=== PATIENT | female | born 1995 | race Caucasian/White ===

== ENCOUNTER 2016-07-14 13:53 | Emergency (ER) | payer MEDICAID, OTHER ==
[2016-07-14 14:18] VITALS: BMI 24.9
[2016-07-14 14:19] VITALS: BP 112/72; PULSE 120; RESP 16; TEMP 98.7; O2SAT 100
[2016-07-14] MEDS ORDERED: Lidocaine/Epi 1% 1:100000 20 ML IJ ONE (15:01)
--- NOTE | 2016-07-14 16:23 | ED PDOC ---
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 Patient stated she tripped and crashed into glass causing laceration. Patient stated she is UTD Tetanus. Patient has FROM on hands, finger and toes. (Dmitriy Manning) Past Medical History - Provider Review Nursing Documentation Reviewed: Yes - Past History Past History: No Previous - Tetanus Immunization Tetanus Immunization: Up to Date - Psychiatric Hx Depression: No Hx Emotional Abuse: No Hx Physical Abuse: No Hx Substance Use: No - Past Surgical History Past Surgical History: No Previous - Suicidal Assessment Feels Threatened In Home Enviroment: No Family/Social History - Physician Review Nursing Documentation Reviewed: Yes Family/Social History: No Known Family HX Smoking Status: Never Smoked Hx Alcohol Use: No Hx Substance Use: No Hx Substance Use Treatment: No Allergies/Home Meds Allergies/Adverse Reactions: Allergies No Known Allergies Allergy (Verified 07/14/16 14:18) Review of Systems - Review of Systems Constitutional: Normal. absent: Fatigue, Weight Change, Fevers Eyes: Normal ENT: Normal Respiratory: Normal Cardiovascular: Normal Gastrointestinal: Normal Genitourinary Female: Normal Musculoskeletal: Normal Skin: Laceration (See HPI) Neurological: Normal Endocrine: Normal Hemo/Lymphatic: Normal Psychiatric: Normal Physical Exam Temperature: Afebrile Blood Pressure: Normal Pulse: Regular Respiratory Rate: Normal Appearance: Positive for: Well-Appearing, Non-Toxic, Comfortable Pain Distress: None Mental Status: Positive for: Alert and Oriented X 3 - Systems Exam Head: Present: Atraumatic, Normocephalic Pupils: Present: PERRL Extroacular Muscles: Present: EOMI Conjunctiva: Present: Normal Mouth: Present: Moist Mucous Membranes Neck: Present: Normal Range of Motion Upper Extremity: Present: Normal ROM, NORMAL PULSES, Neurovascularly Intact, Capillary Refill < 2s, Other ((+) right thumb lateral superficial laceration approx. 1.5 cm. (+) right thenar, palm laceratio, irregular edges, no deep structures or FB visualized, approx. 4.3 cm. Hand, wrist, and finger have FROM. No tendon involvement). No: Cyanosis, Edema Lower Extremity: Present: NORMAL PULSES, Normal ROM, Neurovascularly Intact, Capillary Refill < 2 s, Other (1 cm laceration dorsal distal 2nd left toe. nail bed is not involved. FROM, superficial). No: Edema, CALF TENDERNESS Neurological: Present: GCS=15, CN II-XII Intact, Speech Normal, Motor Func Grossly Intact, Normal Sensory Function, Normal Cerebellar Funct, Gait Normal Skin: Present: Warm, Dry, Normal Color. No: Rashes Psychiatric: Present: Alert, Oriented x 3. No: Normal Insight, Normal Concentration Vital Signs Temp Pulse Resp BP Pulse Ox 07/14/16 14:18 98.7 F 120 H 16 112/72 100 Medical Decision Making Re-evaluation Time: 16:24 Reassessment Condition: Re-examined, Improved ED Course and Treatment: 07/14/16 16:24 Re-evaluation. Patient feels better. Discussed results and plan with patient who expresses understanding. All questions answered and there is agreement with the plan to discharge home with instructions. Patient stable for discharge. Return if symptoms persist or worsen. (Dmitriy Manning) I was available for consultation during PA evaluation. The chart reviewed by me , and I agree with disposition. The documented history was done by the physician adhesion tester. The documented physical exam was done by the physician adhesion tester. The documented procedures were done by the physician adhesion tester. (Berry Pickens) - Medication Orders Current Medication Orders: Discontinued Medications Cephalexin Monohydrate (Keflex) 500 mg PO STAT STA PRN Reason: Protocol Stop: 07/14/16 15:03 Last Admin: 07/14/16 15:30 Dose: 500 MG Lidocaine/Epinephrine (Lidocaine/Epi 1% 1:[id number] 20 Ml) 4 ml IJ ONCE ONE Stop: 07/14/16 15:02 - Procedure PROCEDURE NOTE (Text): 07/14/16 16:24 PROCEDURE: LACERATION REPAIR Performed by the emergency provider Location: right hand thenar, right thumb, and left 2nd toe Length: approx. 6 cm total Description: clean wound edges, irregular, no foreign bodies Distal CMS: Normal. No deficits. Neurovascularly intact. Anesthesia: Lidocaine 1% with Epi, approx. 1 cc, on thenar laceration only Preparation: The wound was cleaned with NS and [place]. The area was prepped and draped in the usual sterile fashion. Exploration: The wound was explored and no foreign bodies were found. Procedure: The wound was closed with 4-0 nylon, interrupted. Toe and thumb Dermabond were used. There was good approximation. In total, 7 sutures were used ( 6 nylon, and 1 Chromic Gut) were used. Post-Procedure: Good closure and hemostasis. The patient tolerated the procedure well and there were no complications. CSM remains intact. Post procedure dressing applied. (Dmitriy Manning) Disposition/Present on Arrival - Present on Arrival Any Indicators Present on Arrival: No History of DVT/PE: No History of Uncontrolled Diabetes: No Urinary Catheter: No History of Decub. Ulcer: No History Surgical Site Infection Following: None - Disposition Have Diagnosis and Disposition been Completed?: Yes Disposition Time: 16:29 Patient Plan: Discharge - Disposition Diagnosis: Hand laceration, Toe laceration Disposition: HOME/ ROUTINE Discharge Instructions (ExitCare): Laceration (ED), Care For Your Stitches (ED) Additional Instructions: Call private doctor for follow up visit and wound check in 2-3 days. Take medication as instructed with food. Keep wound clean and dry for 2 days, then clean wound with soap and water. DO NOT USE PEROXIDE OR ALCOHOL TO CLEAN WOUND. Sutures needs to be removed in 7-10 days. Prescriptions: Cephalexin [Keflex] 500 mg PO TID #15 capsule Ibuprofen [Motrin] 400 mg PO Q8H PRN #20 tab PRN Reason: Pain, Severe (8-10) Referrals: Sotero Parmar [Primary Care Provider] - Follow up with primary Forms: SCHOOL NOTE, WORK NOTE
== END 2016-07-14 16:38 | disposition home or self-care (01) ==
LOC: ED 13:53
DX: S61.411A Laceration without foreign body of right hand, initial encounter (principal); S91.115A Laceration without foreign body of left lesser toe(s) without damage to nail, initial encounter; W01.110A Fall on same level from slipping, tripping and stumbling with subsequent striking against sharp glass, initial encounter; Y93.89 Activity, other specified; Y92.89 Other specified places as the place of occurrence of the external cause

== ENCOUNTER 2017-05-07 03:06 | Emergency (ER) | payer MEDICAID ==
[2017-05-07 03:07] VITALS: BMI 24.9
[2017-05-07 03:22] VITALS: RESP 18; TEMP 98.1; O2SAT 98
--- NOTE | 2017-05-07 03:53 | ED PDOC ---
Arrival/HPI - General Chief Complaint: Abdominal Pain Time Seen by Provider: 05/07/17 03:41 Historian: Patient - History of Present Illness Narrative History of Present Illness (Text): 05/07/17 03:49 22 year old female, with no significant past medical history, presents to the Emergency department complaining of left lower abdominal discomfort associated with menstruation since yesterday. Patient informs worsening pain associated with nausea and vomiting prior to arrival. Patient denies any chest pain, shortness of breath, diarrhea, sick contact or any other complaints. Time/Duration: 24 hours Symptom Onset: Gradual Symptom Course: Worsening Quality: Aching Activities at Onset: Light Context: Home Past Medical History - Provider Review Nursing Documentation Reviewed: Yes - Past History Past History: No Previous - Tetanus Immunization Tetanus Immunization: Up to Date - Psychiatric Hx Depression: No Hx Emotional Abuse: No Hx Physical Abuse: No Hx Substance Use: No - Past Surgical History Past Surgical History: No Previous - Suicidal Assessment Feels Threatened In Home Enviroment: No Family/Social History - Physician Review Nursing Documentation Reviewed: Yes Family/Social History: No Known Family HX Smoking Status: Never Smoked Hx Alcohol Use: No Hx Substance Use: No Hx Substance Use Treatment: No Allergies/Home Meds Allergies/Adverse Reactions: Allergies No Known Allergies Allergy (Verified 05/07/17 03:22) Home Medications: Home Meds Medication Instructions Recorded Confirmed No Known Home Med 05/07/17 05/07/17 Review of Systems - Physician Review All systems were reviewed & negative as marked: Yes - Review of Systems Constitutional: Normal. absent: Fevers Eyes: Normal ENT: Normal Respiratory: Normal. absent: SOB Cardiovascular: Normal. absent: Chest Pain Gastrointestinal: Abdominal Pain (left lower abdominal pain ), Nausea, Vomiting. absent: Diarrhea Genitourinary Female: Normal Musculoskeletal: Normal Skin: Normal Neurological: Normal Endocrine: Normal Hemo/Lymphatic: Normal Psychiatric: Normal Physical Exam Vital Signs Reviewed: Yes Vital Signs Temp Pulse Resp BP Pulse Ox 05/07/17 06:15 83 18 106/70 98 05/07/17 03:15 98.1 F 75 18 103/67 98 Temperature: Afebrile Blood Pressure: Normal Pulse: Regular Respiratory Rate: Normal Appearance: Positive for: Well-Appearing, Non-Toxic, Comfortable Pain Distress: None Mental Status: Positive for: Alert and Oriented X 3 - Systems Exam Head: Present: Atraumatic, Normocephalic Pupils: Present: PERRL Extroacular Muscles: Present: EOMI Conjunctiva: Present: Normal Mouth: Present: Moist Mucous Membranes Neck: Present: Normal Range of Motion Respiratory/Chest: Present: Clear to Auscultation, Good Air Exchange. No: Respiratory Distress, Accessory Muscle Use Cardiovascular: Present: Regular Rate and Rhythm, Normal S1, S2. No: Murmurs Abdomen: Present: Tenderness (mild tenderness to left lower quadrant ), Normal Bowel Sounds. No: Distention, Peritoneal Signs Back: Present: Normal Inspection Upper Extremity: Present: Normal Inspection. No: Cyanosis, Edema Lower Extremity: Present: Normal Inspection. No: Edema Neurological: Present: GCS=15, CN II-XII Intact, Speech Normal Skin: Present: Warm, Dry, Normal Color. No: Rashes Psychiatric: Present: Alert, Oriented x 3, Normal Insight, Normal Concentration Medical Decision Making ED Course and Treatment: 05/07/17 03:57 Impression: 22 year old female presents to the Emergency department for lower abdominal pain, nausea and vomiting. Plan: -- Labs -- Urinalysis, hcG -- US of Pelvis -- Toradol -- IV fluids -- Reassess and disposition Progress Notes: 05/07/17 05:33 US of Pelvis reviewed by radiologist, shows small free fluid within pelvis. - Lab Interpretations Lab Results: 05/07/17 03:54 05/07/17 03:54 Lab Results 05/07/17 03:54: Sodium 138, Potassium 4.3, Chloride 105, Carbon Dioxide 22, Anion Gap 14, BUN 11, Creatinine 0.7, Est GFR ( Amer) > 60, Est GFR (Non- Af Amer) > 60, Random Glucose 96, Calcium 9.2, Total Bilirubin 0.9, AST 35, ALT 51, Alkaline Phosphatase 75, Total Protein 7.0, Albumin 4.1, Globulin 2.9, Albumin/Globulin Ratio 1.4 05/07/17 03:54: WBC 9.6, RBC 4.89, Hgb 12.8, Hct 39.8, MCV 81.4, MCH 26.2, MCHC 32.2, RDW 14.8 H, Plt Count 259, MPV 10.9, Gran % 78.8 H, Lymph % (Auto) 14.8 L , [place] % (Auto) 6.0, Eos % (Auto) 0.3 L, Baso % (Auto) 0.1, Gran # 7.56 H, Lymph # 1.4, [place] # 0.6, Eos # 0.0, Baso # 0.01 05/07/17 03:36: Urine Color Yellow, Urine Appearance Cloudy, Urine pH 6.0, Ur Specific [place] >= 1.030, Urine Protein 30 H, Urine Glucose (UA) Negative, Urine Ketones Negative, Urine Blood Large H, Urine Nitrate Negative, Urine Bilirubin Negative, Urine Urobilinogen 0.2, Ur Leukocyte Esterase Negative, Urine RBC 15 - 20, Urine WBC 0 - 2, Ur Epithelial Cells 0 - 2, Urine HCG, Qual Negative - RAD Interpretation Radiology Orders: 05/07/17 03:52 PELVIS ULTRASOUND [US] Stat - Medication Orders Current Medication Orders: Discontinued Medications Sodium Chloride (Sodium Chloride 0.9%) 1,000 mls @ 80 mls/hr IV .[id number] CELIO Last Admin: 05/07/17 04:22 Dose: 80 mls/hr eMAR Start Stop Document 05/07/17 04:22 SS (Rec: 05/07/17 04:23 [facility] [id number] Intravenous Solution Start Date 05/07/17 Start Time 04:22 Ketorolac Tromethamine (Toradol) 30 mg IVP ONCE ONE Stop: 05/07/17 03:54 Last Admin: 05/07/17 04:10 Dose: 30 mg MAR Pain Assessment Document 05/07/17 04:10 SS (Rec: 05/07/17 04:10 [facility] [id number] Pain Reassessment Is this a pain reassessment? No Sleep Is patient sleeping during reassessment? No Presence of Pain Presence of Pain Yes Location Upper or Lower Lower Pain Location Body Site Abdomen Description Pain Behavior Moaning IVP Administration Document 05/07/17 04:10 SS (Rec: 05/07/17 04:10 SS [facility] [id number][facility] Charges for Administration # of IVP Administrations 1 - Scribe Statement The provider has reviewed the documentation as recorded by the Scribe Jewel Cutler. All medical record entries made by the Scribe were at my direction and personally dictated by me. I have reviewed the chart and agree that the record accurately reflects my personal performance of the history, physical exam, medical decision making, and the department course for this patient. I have also personally directed, reviewed, and agree with the discharge instructions and disposition. Disposition/Present on Arrival - Present on Arrival Any Indicators Present on Arrival: No History of DVT/PE: No History of Uncontrolled Diabetes: No Urinary Catheter: No History of Decub. Ulcer: No History Surgical Site Infection Following: None - Disposition Have Diagnosis and Disposition been Completed?: Yes Diagnosis: Ovarian cyst, left Disposition: HOME/ ROUTINE Disposition Time: 06:00 Condition: GOOD Discharge Instructions (ExitCare): Ovarian Cyst (ED) Forms: [facility] (Azerbaijani)
[2017-05-07] MEDS ORDERED: Sodium Chloride 0.9% 1,000 ML IV SCH (04:00)
[2017-05-07 04:25] LABS: ALB/GLOB RATIO 1.4 (1.1-1.8); ALBUMIN 4.1 g/dL (3.0-4.8); ALT/SGPT 51 U/L (7-56); AST/SGOT 35 U/L (14-36); BLOOD UREA NITROGEN 11 mg/dL (7-21); CALCIUM 9.2 mg/dL (8.4-10.5); GFR AFRICAN-AMERICAN > 60; GFR NON-AFRICAN AMERICAN > 60
[2017-05-07 04:25] LABS: URINE BILIRUBIN NEGATIVE (NEGATIVE); URINE BLOOD LARGE (NEGATIVE); URINE GLUCOSE (UA) NEGATIVE (NEGATIVE); URINE LEUKOCYTE ESTERASE NEGATIVE Leu/uL (NEGATIVE); URINE NITRATE NEGATIVE (NEGATIVE); URINE PROTEIN 30 mg/dL (<30 mg/dL); URINE UROBILINOGEN 0.2 E.U./dL (<1 E.U./dL)
[2017-05-07 04:29] LABS: BASO # 0.01 K/mm3 (0.0-2.0); BASO % 0.1 % (0.0-3.0); EOS % 0.3 % (1.5-5.0); GRAN # 7.56 (1.4-6.5); GRAN % 78.8 % (50.0-68.0); HEMOGLOBIN 12.8 g/dL (12.0-16.0); LYMPH # 1.4 (1.2-3.4); LYMPH % 14.8 % (22.0-35.0); MEAN CELL VOLUME 81.4 fl (80.0-105.0); MEAN CORPUSCULAR HEMOGLOBIN 26.2 pg (25.0-35.0); MEAN CORPUSCULAR HGB CONC 32.2 g/dl (31.0-37.0); MEAN PLATELET VOLUME 10.9 fl (7.0-11.0); MONO # 0.6 (0.1-0.6); RBC 4.89 10^6/uL (3.5-6.1); RED CELL DISTRIBUTION WIDTH 14.8 % (11.5-14.5); WHITE BLOOD COUNT 9.6 10^3/ul (4.5-11.0)
[2017-05-07 04:31] LABS: URINE APPEARANCE CLOUDY (CLEAR); URINE COLOR YELLOW (YELLOW)
[2017-05-07 04:40] LABS: HCG,QUALITATIVE URINE NEGATIVE (NEGATIVE)
[2017-05-07 04:48] LABS: URINE EPITHELIAL CELLS 0 - 2 /hpf (0-5); URINE RBC 15 - 20 /hpf (0-2); URINE WBC 0 - 2 /hpf (0-6)
--- NOTE | 2017-05-07 05:32 | US ---
EXAM: US Pelvis Complete, Transabdominal CLINICAL HISTORY: 22 years old, female; Pain; Pelvic pain; Additional info: Llq pain TECHNIQUE: Real-time transabdominal pelvic ultrasound (complete) with image documentation. COMPARISON: No relevant prior studies available. FINDINGS: Uterus/cervix: Uterus measures 7.6 x 4.1 x 5.3 cm in size. No myometrial mass. Endometrium: 0.2 cm in thickness. Right ovary: 3.3 x 3.5 x 2.0 cm in size. No mass. Normal flow. Left ovary: 3.1 x 2.8 x 2.6 cm in size. No mass. Normal flow. Free fluid: Small free fluid within pelvis. Bladder: Unremarkable as visualized. IMPRESSION: 1. Small free fluid within pelvis. 2. Incidental/non-acute findings are described above.
[2017-05-07 06:16] VITALS: BP 106/70; PULSE 83
== END 2017-05-07 06:18 | disposition home or self-care (01) ==
LOC: ED 03:06
DX: N83.202 Unspecified ovarian cyst, left side (principal)
CPT/HCPCS: 76856; 80053; 81001; 84703; 85025; 96374; 99283; J1885; J7040

== ENCOUNTER 2018-05-20 14:35 | Emergency (ER) | payer MEDICAID ==
[2018-05-20 14:45] VITALS: BMI 19.0
[2018-05-20] MEDS ORDERED: Albuterol-Ipratrop 3 mg / 0.5 (3 ml) UD IH STA (14:51)
[2018-05-20 16:40] VITALS: RESP 18; TEMP 98.3; O2SAT 100
--- NOTE | 2018-05-20 16:55 | RAD ---
HISTORY: shortness of breath COMPARISON: Chest x-ray performed 07/09/12 TECHNIQUE: Chest PA and lateral FINDINGS: LUNGS: No focal consolidation. Please note that chest x-ray has limited sensitivity for the detection of pulmonary masses. PLEURA: No significant pleural effusion identified. No definite pneumothorax . CARDIOVASCULAR: Heart size appears within normal limits. No atherosclerotic calcification present. OSSEOUS STRUCTURES: No acute osseous abnormality identified. VISUALIZED UPPER ABDOMEN: Unremarkable. OTHER FINDINGS: None. IMPRESSION: No focal consolidation.
[2018-05-20 17:08] VITALS: BP 106/65; PULSE 78
--- NOTE | 2018-05-20 17:17 | ED PDOC ---
Arrival/HPI - General Chief Complaint: Shortness Of Breath Time Seen by Provider: 05/20/18 14:44 Historian: Patient - History of Present Illness Narrative History of Present Illness (Text): 05/20/18 14:45 23 year old female, whose past medical history includes asthma, nkda, who presents to the Emergency department complaining of shortness of breath and palpitations from smoking since this morning. Patient reports smoking heavily for 1 year, stopping for 1 month and recently starting again. Patient states when she is stressed she smokes 1 pack a day, but about 3 cigarettes per day normally. Patient notes shortness of breath increases when walking or walking downstairs, but alleviates when lying down. Patient states she could not go to work today due to shortness of breath. Patient notes she has never presented to this emergency department for this reason in the past. Patient denies any recent travels. Patient denies any leg swelling, vaginal bleeding, vaginal discharge, coughing up blood, or any other complaints. Patient is a smoker. Patient states she does not consume EtOH. Time/Duration: 4-6 hours (Patient notes onset as this morning) Symptom Onset: Sudden Symptom Course: Unchanged Activities at Onset: Light Past Medical History - Provider Review Nursing Documentation Reviewed: Yes - Travel History Have you recently traveled outside [place] w/in the past 3 mons?: No - Past History Past History: No Previous - Tetanus Immunization Tetanus Immunization: Up to Date - Reproductive Currently : No - Psychiatric Hx Depression: No Hx Emotional Abuse: No Hx Physical Abuse: No Hx Substance Use: No - Past Surgical History Past Surgical History: No Previous - Anesthesia Hx Anesthesia: No Hx Anesthesia Reactions: No Hx Malignant Hyperthermia: No - Suicidal Assessment Feels Threatened In Home Enviroment: No Family/Social History - Physician Review Nursing Documentation Reviewed: Yes Family/Social History: No Known Family HX Smoking Status: Never Smoked Hx Alcohol Use: No Hx Substance Use: No Hx Substance Use Treatment: No Allergies/Home Meds Allergies/Adverse Reactions: Allergies No Known Allergies Allergy (Verified 05/07/17 03:22) Home Medications: Home Meds Medication Instructions Recorded Confirmed No Known Home Med 05/07/17 05/07/17 Review of Systems - Physician Review All systems were reviewed & negative as marked: Yes - Review of Systems Respiratory: SOB (Pt notes shortness of breath since this morning, increased with walking ). absent: Normal, Cough (Patient denies coughing up any blood) Genitourinary Female: Normal. absent: Vaginal Bleeding, Vaginal Discharge Musculoskeletal: Other (Patient denies any swelling of legs ). absent: Normal Physical Exam - Physical Exam Narrative Physical Exam (Text): Constitutional: No acute distress. Head: Normocephalic. Atraumatic. Eyes: PERRL. ENT: Moist mucous membranes. Neck: Supple. Cardiovascular: Regular rate. Chest: No tenderness. Respiratory: Clear to auscultation bilaterally. GI: Soft. Nontender. Nondistended. Back: No CVA tenderness. Musculoskeletal: No tenderness or swelling of extremities. Skin: No rash. Neurologic: Alert, no focal deficit. Vital Signs Reviewed: Yes Vital Signs Temp Pulse Resp BP Pulse Ox 05/20/18 17:07 78 18 106/65 100 05/20/18 14:35 98.3 F 88 18 101/66 100 Temperature: Afebrile Blood Pressure: Normal Pulse: Regular Respiratory Rate: Normal Appearance: Positive for: Well-Appearing, Non-Toxic Pain Distress: None Mental Status: Positive for: Alert and Oriented X 3 Medical Decision Making ED Course and Treatment: 05/20/18 14:45 Impression: 23 year old female who presents to the emergency department for shortness of breath and palpitations since this morning, resulting from smoking Differential Diagnosis included but are not limited to: Plan: -- EKG -- X-Ray of chest (PA/LAT) -- Duoneb -- Reassess and disposition Prior Visits: Notes and results from previous visits were reviewed. Patient was last seen in the emergency department on 05/07/17 complaining of left lower abdominal discomfort associated with menstruation since yesterday. Patient was discharged home in good condition. Progress Notes: 05/20/18 14:45 Patient was counseled on smoking cessation. 05/20/18 17:43 EKG: Ordered, reviewed, and independently interpreted the EKG. Rate : 86 BPM Rhythm : NSR Interpretation : No ST-segment elevations or depressions, no T-wave inversions, normal intervals. X-Ray of chest reviewed by radiologist, shows: Dictated by: Jada Reyes MD Dictated Date/Time: 05/20/18 16:51 Impression: No focal consolidation. Patient felt better after 1 duoneb treatment and wished to go home. - RAD Interpretation Radiology Orders: 05/20/18 14:51 CHEST TWO VIEWS (PA/LAT) [RAD] Stat - Medication Orders Current Medication Orders: Discontinued Medications Albuterol/Ipratropium (Duoneb 3 Mg/0.5 Mg (3 Ml) Ud) 3 ml IH STAT STA Stop: 05/20/18 14:52 Last Admin: 05/20/18 15:20 Dose: 3 ml - Scribe Statement The provider has reviewed the documentation as recorded by the Scribe Kalpana Rangel All medical record entries made by the Scribe were at my direction and personally dictated by me. I have reviewed the chart and agree that the record accurately reflects my personal performance of the history, physical exam, medical decision making, and the department course for this patient. I have also personally directed, reviewed, and agree with the discharge instructions and disposition. Disposition/Present on Arrival - Present on Arrival Any Indicators Present on Arrival: No History of DVT/PE: No History of Uncontrolled Diabetes: No Urinary Catheter: No History of Decub. Ulcer: No History Surgical Site Infection Following: None - Disposition Have Diagnosis and Disposition been Completed?: Yes Diagnosis: Shortness of breath Disposition: HOME/ ROUTINE Disposition Time: 16:59 Patient Plan: Discharge Condition: STABLE Discharge Instructions (ExitCare): Shortness of Breath (Dyspnea) Referrals: Meredith Barajas MD [Primary Care Provider] - Follow up with primary Forms: [email or web address] (Liberian)
--- NOTE | 2018-05-21 11:43 | CARD ---
APPROVED REPORT Date of service: 05/20/2018 EKG Measurement Heart [id number] <Conclusion> Normal sinus rhythm Possible Left atrial enlargement
== END 2018-05-20 17:42 | disposition home or self-care (01) ==
LOC: ED 14:35
DX: R06.02 Shortness of breath (principal); F17.210 Nicotine dependence, cigarettes, uncomplicated